=== PATIENT | female | born 1950 | race Caucasian/White ===

== ENCOUNTER 2016-07-28 20:55 | Emergency (ER) | payer OTHER ==
[2016-07-28 21:03] VITALS: BP 153/64
--- NOTE | 2016-07-28 21:20 | UC ---
Lower Extremity/Ankle HPI - HPI Summary HPI Summary: left foot pain x 1 day , no known injury , + swelling of the left foot, increase pain with walking - History of Current Complaint Chief Complaint: UCLowerExtremity Stated Complaint: LFT FOOT COMPLAINT Time Seen by Provider: 07/28/16 21:12 Hx Obtained From: Patient Onset/Duration: Gradual Onset, Lasting Days - 1, Still Present Severity Initially: Moderate Severity Currently: Moderate Aggravating Factor(s): Standing, Ambulation Alleviating Factor(s): Rest, Elevation, Ice Able to Bear Weight: Yes - Allergies/Home Medications Allergies/Adverse Reactions: Allergies Allergy/AdvReac Type Severity Reaction Status Date / Time Prednisone Allergy See Comment Verified 07/28/16 21:03 Codeine AdvReac Mild very Verified 07/28/16 21:03 agitiated Metoprolol [From Lopressor] AdvReac gets hyper Verified 07/28/16 21:03 PMH/Surg Hx/FS Hx/Imm Hx Previously Healthy: Yes - Surgical History Surgical History: Yes Surgery Procedure, Year, and Place: hysterectomy. appendectomy - Family History Known Family History: Positive: None Negative: Diabetes - Social History Alcohol Use: None Substance Use Type: None Smoking Status (MU): Never Smoked Tobacco - Immunization History Most Recent Influenza Vaccination: NEVER Most Recent Tetanus Shot: 2011 Most Recent Pneumonia Vaccination: NEVER Review of Systems Constitutional: Negative Skin: Negative Eyes: Negative ENT: Negative Respiratory: Negative Cardiovascular: Negative Musculoskeletal: Other: - left foot pain All Other Systems Reviewed And Are Negative: Yes Physical Exam Triage Information Reviewed: Yes Appearance: Well-Appearing, No Pain Distress, Well-Nourished Vital Signs: Initial Vital Signs Temp 97.7 F 07/28/16 20:57 Pulse 90 07/28/16 20:57 Resp 16 07/28/16 20:57 BP 153/64 07/28/16 20:57 Pulse Ox 100 07/28/16 20:57 Vital Signs Reviewed: Yes Eyes: Positive: Conjunctiva Clear ENT: Positive: Normal ENT inspection, Hearing grossly normal, Pharynx normal Neck: Positive: Supple, Nontender, No Lymphadenopathy Respiratory: Positive: Chest non-tender, Lungs clear, Normal breath sounds Cardiovascular: Positive: RRR, No Murmur, Pulses Normal Musculoskeletal: Positive: Other: - left foot: no erythema, no bruising, + swelling, distal foot, + tenderness, distal 4th and 5th metatarsal Lower Extremity Course/Dx - Differential Dx/Diagnosis Provider Diagnoses: contusion foot
[2016-07-28] MEDS ORDERED: Naproxen TAB* 250 MG PO ONE (21:41)
--- NOTE | 2016-07-28 21:48 | RAD ---
HISTORY: Left foot MTP pain COMPARISONS: None VIEWS: 3, Frontal, lateral, and oblique views of the left foot FINDINGS: BONE DENSITY: Normal. BONES: There is no displaced fracture. There are calcaneal enthesophytes. JOINTS: There is osteoarthritis of the first MTP joint . ALIGNMENT: There is mild hallux valgus SOFT TISSUES: Unremarkable. OTHER FINDINGS: None. IMPRESSION: OSTEOARTHRITIS. NO ACUTE OSSEOUS INJURY. IF SYMPTOMS PERSIST, RECOMMEND REPEAT IMAGING.
== END 2016-07-28 21:53 | disposition home or self-care (01) ==
LOC: UCCORT 20:55
DX: S90.32XA Contusion of left foot, initial encounter (principal); Z88.5 Allergy status to narcotic agent; X58.XXXA Exposure to other specified factors, initial encounter; Y92.9 Unspecified place or not applicable
CPT/HCPCS: 99212; A9270-GY; G0463

== ENCOUNTER 2019-02-24 17:22 | Emergency (ER) | payer MEDICARE ==
[2019-02-24 18:35] LABS: ABS Monocytes 0.8 10^3/ul (0-0.8); ABS Neutrophils 8.4 10^3/ul (1.5-7.7); Eosinophil % 0.5 %; Hematocrit 35 % (35-47); Hemoglobin 12.2 g/dL (12.0-16.0); Lymphocyte % 9.7 %; Mean Corpuscular HGB Conc 35 g/dL (31-36); Mean Corpuscular Hemoglobin 29 pg (27-31); Mean Corpuscular Volume 83 fL (80-97); Mean Platelet Volume 7.1 fL (7.4-10.4); Nucleated Red Blood Cells % 0.1; Platelet Count 184 10^3/uL (150-450); Red Blood Count 4.19 10^6 /uL (3.70-4.87); Red Cell Distribution Width 14 % (10-15); White Blood Count 10.3 10^3/uL (3.5-10.8)
[2019-02-24 18:55] LABS: Albumin 4.6 g/dL (3.2-5.2); Albumin/Globulin Ratio 1.6 (1-3); BUN/Creatinine Ratio 17.4 (8-20); C Reactive Protein 97.75 mg/L (<8.01); Calcium 10.2 mg/dL (8.6-10.3); EGFR African American 42.4 (>60); Globulin 2.8 g/dL (2-4); Potassium 4.4 mmol/L (3.5-5.0); Total Bilirubin 0.9 mg/dL (0.2-1.0); Total Protein 7.4 g/dL (6.4-8.9)
--- NOTE | 2019-02-24 19:38 | ED ---
Abdominal Pain/Female - HPI Summary HPI Summary: 68 y/o female presented to [facility] complaining of lower abdominal pain that started last night. Pt stated that the pain kept her up, leading her to toss and turn. She felt nauseous and vomited once, and has also been constipated. She has had no dysuria or burning while urinating. Her pain is aggravated by standing and walking, and lessened by sitting. She ate chicken noodle soup and pretzels for lunch today and has not vomited since. She has no chronic abdominal pain, but had a case of appendicitis at 16 in which her appendix burst. She has also had a hysterectomy. She has HTN for which she is on medication, and has no diabetes, CAD, or respiratory issues. She does not smoke and had a colonoscopy recently. Pt notes an aversion to needles. - History of Current Complaint Chief Complaint: EDAbdPain Stated Complaint: ABD PAIN PER PT Hx Obtained From: Patient, Family/Criminal Defense Lawyer Onset/Duration: Lasting Days - 1, Still Present Timing: Days - 1 Severity Currently: Moderate Pain Intensity: 7 Pain Scale Used: 0-10 Numeric Location: Other - lower Aggravating Factor(s): Other: - standing, ambulation Alleviating Factor(s): Position - sitting Associated Signs and Symptoms: Positive: Constipation, Nausea, Vomiting. Negative: Urinary Symptoms Allergies/Adverse Reactions: Allergies Allergy/AdvReac Type Severity Reaction Status Date / Time codeine Allergy Hallucinati Verified 02/24/19 17:33 ons metoprolol [From Lopressor] Allergy Hallucinati Verified 02/24/19 17:33 ons prednisone Allergy Hallucinati Verified 02/24/19 17:33 ons PMH/Surg Hx/FS Hx/Imm Hx Endocrine/Hematology History: Denies: Hx Diabetes Cardiovascular History: Reports: Hx Hypertension Respiratory History: Denies: Hx Asthma - Surgical History Surgery Procedure, Year, and Place: hysterectomy. appendectomy Infectious Disease History: No Infectious Disease History: Denies: History Other Infectious Disease, Traveled Outside the [place] in Last 30 Days - Family History Known Family History: Positive: Hypertension Negative: Diabetes - Social History Alcohol Use: None Substance Use Type: Reports: None Smoking Status (MU): Never Smoked Tobacco Review of Systems Positive: Abdominal Pain, Vomiting, Nausea, Other - constipation Negative: burning, dysuria All Other Systems Reviewed And Are Negative: Yes Physical Exam - Summary Physical Exam Summary: Appearance: Well-appearing, Well-nourished, lying in bed comfortably Skin: Warm, dry, no obvious rash Eyes: sclera anicteric, no conjunctival pallor ENT: mucous membranes moist, pharynx appears normal Neck: Supple, nontender Respiratory: Clear to auscultation, no signs of respiratory distress Cardiovascular: Normal S1, S2. No murmurs. Normal distal pulses in tibial and radial bilaterally. Abdomen: Soft, LLQ tenderness without peritoneal signs, normal active bowel sounds present Musculoskeletal: Normal, Strength/ROM Intact Neurological: A&Ox3, awake and alert, mentation is normal, speech is fluent and appropriate Psychiatric: affect is normal, does not appear anxious or depressed Triage Information Reviewed: Yes Vital Signs On Initial Exam: Initial Vitals Temp Pulse Resp BP Pulse Ox 97.9 F 90 16 111/88 100 02/24/19 17:28 02/24/19 17:28 02/24/19 17:28 02/24/19 17:28 02/24/19 17:28 Vital Signs Reviewed: Yes Procedures - Sedation Patient Received Moderate/Deep Sedation with Procedure: No Diagnostics - Vital Signs Vital Signs Temp Pulse Resp BP Pulse Ox 02/24/19 17:28 97.9 F 90 16 111/88 100 - Laboratory Lab Results: Lab Results 02/24/19 02/24/19 Range/Units 18:22 18:22 WBC 10.3 (3.5-10.8) 10^3/uL RBC 4.19 (3.70-4.87) 10^6 /uL Hgb 12.2 (12.0-16.0) g/dL Hct 35 (35-47) % MCV 83 (80-97) fL MCH 29 (27-31) pg MCHC 35 (31-36) g/dL RDW 14 (10-15) % Plt Count 184 (150-450) 10^3/uL MPV 7.1 L (7.4-10.4) fL Neut % (Auto) 81.2 % Lymph % (Auto) 9.7 % [place] % (Auto) 8.2 % Eos % (Auto) 0.5 % Baso % (Auto) 0.4 % Absolute Neuts (auto) 8.4 H (1.5-7.7) 10^3/ul Absolute Lymphs (auto) 1.0 (1.0-4.8) 10^3/ul Absolute Monos (auto) 0.8 (0-0.8) 10^3/ul Absolute Eos (auto) 0.0 (0-0.6) 10^3/ul Absolute Basos (auto) 0.0 (0-0.2) 10^3/ul Absolute Nucleated RBC 0.0 10^3/ul Nucleated RBC % 0.1 Sodium 129 L (135-145) mmol/L Potassium 4.4 (3.5-5.0) mmol/L Chloride 94 L (101-111) mmol/L Carbon Dioxide 26 (22-32) mmol/L Anion Gap 9 (2-11) mmol/L BUN 26 H (6-24) mg/dL Creatinine 1.49 H (0.51-0.95) mg/dL Est GFR ( Amer) 42.4 (>60) Est GFR (Non-Af Amer) 35.0 (>60) BUN/Creatinine Ratio 17.4 (8-20) Glucose 108 H (70-100) mg/dL Calcium 10.2 (8.6-10.3) mg/dL Total Bilirubin 0.90 (0.2-1.0) mg/dL AST 12 L (13-39) U/L ALT 14 (7-52) U/L Alkaline Phosphatase 69 (34-104) U/L C-Reactive Protein 97.75 H (<8.01) mg/L Total Protein 7.4 (6.4-8.9) g/dL Albumin 4.6 (3.2-5.2) g/dL Globulin 2.8 (2-4) g/dL Albumin/Globulin Ratio 1.6 (1-3) Lipase 11 (11.0-82.0) U/L Result Diagrams: 02/24/19 18:22 02/24/19 18:22 Lab Statement: Any lab studies that have been ordered have been reviewed, and results considered in the medical decision making process. - CT abd pel CT Interpretation Completed By: Radiologist Summary of CT Findings: IMPRESSION: Moderate wall thickening sigmoid colon centered around a distended and inflamed. diverticulum consistent with diverticulitis. No abscess or obstruction. This report was reviewed by the ED physician. Abdominal Pain Fem Course/Dx - Course Course Of Treatment: 68 y/o female presented to [facility] complaining of lower abdominal pain that started last night. Pt stated that the pain kept her up, leading her to toss and turn. She felt nauseous and vomited once, and has also had issues with BMs. She has had no dysuria or burning while urinating. Her pain is aggravated by standing and walking, and lessened by sitting. She ate chicken noodle soup and pretzels for lunch today and has not vomited since. Bloodwork showed MPV L, abs neuts H, sodium L, chloride L, BUN H, creatinine H, glucose H, AST L, CRP H. UA showed blood, leukocyte esterase, WBC, and squamous epithelial cells. CT abd/pel showed moderate wall thickening sigmoid colon centered around a distended and inflamed. diverticulum consistent with diverticulitis. No abscess or obstruction. Pt was given 875mg PO Augmentin. Pt was diagnosed with diverticulitis and discharged to home with prescription for Augmentin. - Diagnoses Provider Diagnoses: Diverticulitis Discharge ED - Sign-Out/Discharge Documenting (check all that apply): Patient Departure - dc - Discharge Plan Condition: Good Disposition: HOME Prescriptions: Amoxicillin/Clavulanate TAB* [Augmentin TAB 875*] 875 mg PO BID #20 tab Patient Education Materials: Diverticulitis (ED) Referrals: Enma Jones MD [Primary Care Provider] - 4 Days (if not starting to improve) - Billing Disposition and Condition Condition: GOOD Disposition: Home - Attestation Statements Document Initiated by Eden: Yes Documenting Scribe: Matthew Pryor Provider For Whom Eden is Documenting (Include Credential): Eddie Dejesus MD Scribe Attestation: Matthew Hernandez, scribed for Eddie Dejesus MD on at 1844. Scribe Documentation Reviewed: Yes Provider Attestation: The documentation as recorded by the eden, Matthew Pryor accurately reflects the service I personally performed and the decisions made by me, Eddie Dejesus MD Status of Scribe Document: Viewed
[2019-02-24 20:51] LABS: Urine Appearance Cloudy; Urine Bilirubin Negative (Negative); Urine Blood 1+ (Negative); Urine Color Yellow; Urine Glucose Negative (Negative); Urine Ketones Negative (Negative); Urine Nitrite Negative (Negative); Urine Protein Negative (Negative); Urine Urobilinogen Negative (Negative)
[2019-02-24 20:54] LABS: Urine Bacteria Absent (Absent); Urine Red Blood Cell Trace(0-2/hpf) (Absent); Urine Squamous Epithelial Cell Present (Absent); Urine White Blood Cell 2+(11-20/hpf) (Absent)
[2019-02-24] MEDS ORDERED: Iodixanol* (CONTRAST) 320 MG/ML 100 ML SDV IV ONE (21:11)
[2019-02-24] MEDS ORDERED: Amoxicillin/Clavulanate TAB* 875 MG PO ONE (22:54)
[2019-02-24 23:12] VITALS: BP 115/70
== END 2019-02-24 23:11 | disposition home or self-care (01) ==
LOC: ED 17:22
DX: K57.92 Diverticulitis of intestine, part unspecified, without perforation or abscess without bleeding (principal); K59.00 Constipation, unspecified; R11.2 Nausea with vomiting, unspecified; R10.30 Lower abdominal pain, unspecified; I10 Essential (primary) hypertension; Z79.899 Other long term (current) drug therapy; Z79.82 Long term (current) use of aspirin
CPT/HCPCS: 36415; 74177; 80053; 81003; 81015; 83690; 85025; 86140; 87086; 99283; A9270-GY; Q9967